=== PATIENT | female | born 1980 | race Caucasian/White ===

== ENCOUNTER 2016-05-21 12:53 | Emergency (ER) | payer OTHER | END 2016-05-21 14:09 | disposition home or self-care (01) | LOC: ER 12:53 | DX: J02.0 Streptococcal pharyngitis (principal); K85.90 Acute pancreatitis without necrosis or infection, unspecified; F17.210 Nicotine dependence, cigarettes, uncomplicated; Z79.899 Other long term (current) drug therapy | CPT/HCPCS: 87502; 87651 ==